=== PATIENT | male | born 1950 | race Caucasian/White ===

== ENCOUNTER 2016-04-19 20:50 | Inpatient (IN) | payer MEDICAID ==
[~2016-04-19] VITALS: Ht 182.9 cm; Wt 79.5 kg
[2016-04-19 21:18] LABS: Basophils # (auto) 0.1 uL; Basophils % (auto) 0.5 % (0.0-2.0); Eosinophils # (auto) 0.1 uL; Eosinophils % (auto) 0.5 % (0.0-7.0); Hematocrit 39.1 % (41.0-53.0); Hemoglobin 12.9 g/dL (13.5-17.5); Lymphocytes # (auto) 0.9 uL; Lymphocytes % (auto) 7.9 % (10.0-50.0); Mean Corpuscular Hemoglobin 27.8 pg (28.0-32.0); Mean Corpuscular Hgb Conc. 33.1 g/dL (32.0-36.0); Mean Platelet Volume 6.1 fL (7.4-10.4); Neutrophils # (auto) 9.9 uL; Neutrophils % (auto) 83.1 % (37.0-80.0); Platelet Count (auto) 622 10^3/uL (140-450); Red Cell Distribution Width 14.1 % (11.6-16.0); White Blood Cell 11.9 10^3/uL (4.4-10.8)
[2016-04-19] MEDS ORDERED: ENOXAPARIN SOD 80 MG/0.8ML SYRINGE SC ONE (21:30)
[2016-04-19] MEDS ORDERED: ASPirin 81 mg TAB PO ONE (21:30)
[2016-04-19] MEDS ORDERED: MORPHINE SULFATE 4 MG/ML SYRG IV PRN (21:30)
[2016-04-19] MEDS ORDERED: ONDANSETRON HCL 4 MG/2 ML VIAL IV ONE (21:30)
[2016-04-19] MEDS ORDERED: NITROGLYCERIN 0.2MG/HR TOPICAL PATCH TD ONE (21:30)
[2016-04-19 21:33] LABS: Partial Thromboplastin Time 29.8 sec (22.64-33.71); Prothrombin Time 11.9 sec (9.37-12.3)
[2016-04-19 21:42] LABS: INR 1.16 (0.9-1.15)
[2016-04-19 21:45] LABS: B-Type Natriuretic Peptide 811.73 pg/mL (0-100); Temperature: 22.9 C (20.0-25.0)
[2016-04-19 21:53] LABS: Albumin 3.3 g/dL (3.4-5.0); BUN/Creatinine Ratio 19.6; Bilirubin, Total 0.5 mg/dL (0.2-1.0); Calcium 8.3 mg/dL (8.5-10.1); Potassium 3.6 mmol/L (3.5-5.1)
[2016-04-19] MEDS ORDERED: FUROSEMIDE 20 MG/2 ML VIAL ONE (22:35)
[2016-04-19] MEDS ORDERED: FUROSEMIDE 20 MG/2 ML VIAL IV ONE (23:00)
[2016-04-20] VITALS (20 sets, daily range): BP systolic 116–157; BP diastolic 72–99
[2016-04-20] MEDS ORDERED: AZITHROMYCIN 500MG/D5W 250ML 250 ML IV ONE (11:45)
[2016-04-20] MEDS ORDERED: ONDANSETRON HCL 4 MG/2 ML VIAL IV PRN (11:45)
[2016-04-20] MEDS ORDERED: cefTRIAXone 1GM/50ML D5W 50 ML IV ONE (11:45)
[2016-04-20] MEDS ORDERED: POTASSIUM CHL 10 Meq TABLET PO ONE (11:45)
[2016-04-20] MEDS ORDERED: LORazepam 0.5 MG TAB PO PRN (11:45)
[2016-04-20] MEDS ORDERED: ALUM & MAG HYDROX-SIMETH LIQ(MAALOX) 30 ML PO PRN (11:45)
[2016-04-20] MEDS ORDERED: NITROGLYCERIN 0.4 MG SL TAB SL PRN ×2 (11:45)
[2016-04-20] MEDS ORDERED: PANTOPRAZOLE 40 MG TAB PO ONE (11:45)
[2016-04-20] MEDS ORDERED: ZOLPIDEM TARTRATE 5 MG TAB PO PRN (11:45)
[2016-04-20] MEDS ORDERED: MORPHINE SULF INJ 2 MG/ML SYRINGE 1ML IV PRN ×2 (11:45)
[2016-04-20] MEDS ORDERED: DOCUSATE SOD 100 MG CAP PO ONE (12:00)
[2016-04-20] MEDS ORDERED: ASPirin 81 mg TAB PO ONE (12:00)
[2016-04-20] MEDS ORDERED: ENOXAPARIN SOD 80 MG/0.8ML SYRINGE SC ONE (12:00)
[2016-04-20] MEDS ORDERED: CLOPIDOGREL BISULFATE 75 MG TAB PO ONE (12:00)
[2016-04-20] MEDS: SODIUM CHLOR 0.9% PF (SALINE LOCK) 10ML VIAL IV SCH ×2 (12:05→22:26)
[2016-04-20] MEDS ORDERED: HEPARIN IN NS 1000U/500ML (2UNIT/ML) 500 ML BAG IV ONE (13:45)
[2016-04-20] MEDS ORDERED: HEPARIN 1,000 UNITS/ml 1ML VIAL IV ONE (14:00)
[2016-04-20] MEDS ORDERED: HEPARIN SODIUM (PORCINE) 5000 UNITS/ML 1ML VIAL IV ONE (14:01)
[2016-04-20] MEDS ORDERED: IOHEXOL 350 MG/ML 100ML IJ ONE ×2 (14:08→14:22)
[2016-04-20] MEDS ORDERED: LIDOCAINE 2%HCL (LOCAL ANESTH.) INJ 20ML MDV ONE ×2 (14:08→14:20)
[2016-04-20] MEDS ORDERED: fentaNYL CITRATE 100 MCG/2 ML VL ONE (14:19)
[2016-04-20] MEDS ORDERED: MIDAZOLAM HCL 1MG/1ML-2 ML VIAL ONE (14:20)
[2016-04-20] MEDS ORDERED: SODIUM CHL 0.9% 50 ML ONE (14:20)
[2016-04-20] MEDS ORDERED: EPTIFIBATIDE INJ (2MG/ML) 10ML VIAL IV ONE (14:20)
[2016-04-20] MEDS ORDERED: ANGIOMAX 250 MG VIAL IV ONE (14:20)
[2016-04-20] MEDS ORDERED: HEPARIN DRIP/D5W 100UNITS/ML 250 ML IV SCH ×2 (14:44→16:54)
[2016-04-20 15:02] LABS: Basophils # (auto) 0.1 uL; Basophils % (auto) 0.8 % (0.0-2.0); Eosinophils # (auto) 0.1 uL; Hematocrit 37.7 % (41.0-53.0); Hemoglobin 12.4 g/dL (13.5-17.5); Lymphocytes # (auto) 1.6 uL; Lymphocytes % (auto) 15.6 % (10.0-50.0); Mean Corpuscular Volume 84.9 fL (80.0-100.0); Monocytes # (auto) 0.9 uL; Monocytes % (auto) 9.2 % (0.0-12.0); Neutrophils # (auto) 7.3 uL; Neutrophils % (auto) 73.4 % (37.0-80.0); Platelet Count (auto) 501 10^3/uL (140-450); Red Cell Distribution Width 14.7 % (11.6-16.0); White Blood Cell 9.9 10^3/uL (4.4-10.8)
[2016-04-20 15:10] LABS: Partial Thromboplastin Time 35.6 sec (22.64-33.71); Prothrombin Time 12.1 sec (9.37-12.3)
[2016-04-20 15:21] LABS: INR 1.17 (0.9-1.15)
[2016-04-20] MEDS: FUROSEMIDE 20 MG/2 ML VIAL IV SCH (17:26)
[2016-04-20] MEDS: BOOST PLUS 8 ounce PO SCH (18:00)
[2016-04-20] MEDS: HEPARIN DRIP/D5W 100UNITS/ML 250 ML IV SCH (18:19)
[2016-04-20] MEDS: ALBUTEROL SULF 2.5 MG/0.5ML(0.5%) NEB SOLN NEB SCH (18:35)
[2016-04-20] MEDS: IPRATROPIUM BROM 0.5 MG/2.5ML INH SOL NEB SCH (18:35)
[2016-04-20] MEDS ORDERED: ENOXAPARIN SOD 80 MG/0.8ML SYRINGE SC SCH (22:00)
[2016-04-20] MEDS: FLUTICASONE PROP NASAL SPR 0.05 % (50MCG) 16GM EACHNOSTRI SCH (22:25)
[2016-04-20] MEDS: CARVEDILOL 3.125 MG TAB PO SCH (22:29)
[2016-04-20] MEDS: POTASSIUM CHL 10 Meq TABLET PO SCH (22:30)
[2016-04-20] MEDS: ATORVASTATIN 20 MG TAB PO SCH (22:30)
[2016-04-20] MEDS: PANTOPRAZOLE 40 MG TAB PO SCH (22:31)
[2016-04-20] MEDS: ACETAMINOPHEN 325 MG TAB PO PRN (23:29)
[2016-04-21] VITALS (70 sets, daily range): BP systolic 98–150; BP diastolic 56–91
[2016-04-21] MEDS: IPRATROPIUM BROM 0.5 MG/2.5ML INH SOL NEB SCH ×4 (00:04→18:30)
[2016-04-21] MEDS: ALBUTEROL SULF 2.5 MG/0.5ML(0.5%) NEB SOLN NEB SCH ×4 (00:04→18:31)
[2016-04-21] MEDS: ENALAPRIL MALEATE 2.5 MG TAB PO SCH ×4 (00:18→22:00)
[2016-04-21 04:34] LABS: Basophils # (auto) 0.1 uL; Basophils % (auto) 1.2 % (0.0-2.0); Eosinophils # (auto) 0 uL; Eosinophils % (auto) 0.3 % (0.0-7.0); Hematocrit 33.6 % (41.0-53.0); Hemoglobin 11.3 g/dL (13.5-17.5); Lymphocytes # (auto) 0.9 uL; Lymphocytes % (auto) 8.5 % (10.0-50.0); Mean Corpuscular Hemoglobin 28.3 pg (28.0-32.0); Mean Corpuscular Hgb Conc. 33.5 g/dL (32.0-36.0); Mean Corpuscular Volume 84.7 fL (80.0-100.0); Mean Platelet Volume 6.5 fL (7.4-10.4); Monocytes # (auto) 1.1 uL; Monocytes % (auto) 9.8 % (0.0-12.0); Neutrophils # (auto) 8.9 uL; Neutrophils % (auto) 80.2 % (37.0-80.0); Platelet Count (auto) 556 10^3/uL (140-450); Red Cell Distribution Width 14.5 % (11.6-16.0); White Blood Cell 11.1 10^3/uL (4.4-10.8)
[2016-04-21 04:39] LABS: Prothrombin Time 12.3 sec (9.37-12.3)
[2016-04-21 04:49] LABS: Albumin 2.6 g/dL (3.4-5.0); Bilirubin, Total 0.9 mg/dL (0.2-1.0); Calcium 8.2 mg/dL (8.5-10.1); Potassium 3.8 mmol/L (3.5-5.1); Total Protein 6.1 g/dL (6.4-8.2)
[2016-04-21 05:27] LABS: INR 1.19 (0.9-1.15)
[2016-04-21] MEDS: FUROSEMIDE 20 MG/2 ML VIAL IV SCH ×2 (06:22→19:25)
[2016-04-21] MEDS: SODIUM CHLOR 0.9% PF (SALINE LOCK) 10ML VIAL IV SCH ×3 (06:29→22:00)
[2016-04-21] MEDS: ACETAMINOPHEN 325 MG TAB PO PRN ×2 (06:58→23:59)
[2016-04-21] MEDS: BOOST PLUS 8 ounce PO SCH ×3 (08:00→18:00)
[2016-04-21] MEDS ORDERED: CLOPIDOGREL BISULFATE 75 MG TAB PO SCH (10:00)
[2016-04-21] MEDS: CARVEDILOL 3.125 MG TAB PO SCH ×2 (10:00→22:00)
[2016-04-21] MEDS: cefTRIAXone 1GM/50ML D5W 50 ML IV SCH (10:11)
[2016-04-21] MEDS: FLUTICASONE PROP NASAL SPR 0.05 % (50MCG) 16GM EACHNOSTRI SCH ×2 (10:12→22:00)
[2016-04-21] MEDS: ASPirin 81 mg TAB PO SCH (10:12)
[2016-04-21] MEDS: PANTOPRAZOLE 40 MG TAB PO SCH ×2 (10:12→22:00)
[2016-04-21] MEDS: POTASSIUM CHL 10 Meq TABLET PO SCH ×2 (10:13→22:00)
[2016-04-21] MEDS: DOCUSATE SOD 100 MG CAP PO SCH (10:13)
[2016-04-21] MEDS: AZITHROMYCIN 500MG/D5W 250ML 250 ML IV SCH (11:03)
[2016-04-21] MEDS ORDERED: HYDROcodone-ACET 5/325MG TAB ONE (14:16)
[2016-04-21] MEDS: HEPARIN DRIP/D5W 100UNITS/ML 250 ML IV SCH (19:27)
[2016-04-21] MEDS: ATORVASTATIN 20 MG TAB PO SCH (22:00)
[2016-04-22] VITALS (48 sets, daily range): BP systolic 97–132; BP diastolic 50–91
[2016-04-22] MEDS: IPRATROPIUM BROM 0.5 MG/2.5ML INH SOL NEB SCH ×4 (00:08→19:38)
[2016-04-22] MEDS: ALBUTEROL SULF 2.5 MG/0.5ML(0.5%) NEB SOLN NEB SCH ×4 (00:08→19:38)
[2016-04-22 04:06] LABS: Basophils # (auto) 0.1 uL; Basophils % (auto) 0.5 % (0.0-2.0); Eosinophils # (auto) 0 uL; Eosinophils % (auto) 0.2 % (0.0-7.0); Hematocrit 37.4 % (41.0-53.0); Hemoglobin 12.4 g/dL (13.5-17.5); Lymphocytes # (auto) 0.9 uL; Lymphocytes % (auto) 7.2 % (10.0-50.0); Mean Corpuscular Hemoglobin 28.1 pg (28.0-32.0); Mean Corpuscular Hgb Conc. 33.2 g/dL (32.0-36.0); Mean Corpuscular Volume 84.7 fL (80.0-100.0); Mean Platelet Volume 7.2 fL (7.4-10.4); Monocytes # (auto) 1.1 uL; Monocytes % (auto) 9.2 % (0.0-12.0); Neutrophils # (auto) 10.1 uL; Neutrophils % (auto) 82.9 % (37.0-80.0); Platelet Count (auto) 491 10^3/uL (140-450); White Blood Cell 12.2 10^3/uL (4.4-10.8)
[2016-04-22 04:39] LABS: Partial Thromboplastin Time 31.6 sec (22.64-33.71); Prothrombin Time 12.3 sec (9.37-12.3)
[2016-04-22 04:49] LABS: INR 1.19 (0.9-1.15)
[2016-04-22] MEDS: SODIUM CHLOR 0.9% PF (SALINE LOCK) 10ML VIAL IV SCH ×3 (06:08→22:40)
[2016-04-22] MEDS: FUROSEMIDE 20 MG/2 ML VIAL IV SCH ×2 (06:52→17:22)
[2016-04-22] MEDS: BOOST PLUS 8 ounce PO SCH ×3 (08:00→18:00)
[2016-04-22 09:01] LABS: BUN/Creatinine Ratio 15.5; Calcium 8.7 mg/dL (8.5-10.1); Magnesium 2.4 mg/dL (1.6-2.6); Potassium 3.7 mmol/L (3.5-5.1)
[2016-04-22] MEDS: HYDROcodone-ACET 5/325MG TAB PO PRN ×2 (09:02→23:51)
[2016-04-22] MEDS: cefTRIAXone 1GM/50ML D5W 50 ML IV SCH (09:18)
[2016-04-22] MEDS: FLUTICASONE PROP NASAL SPR 0.05 % (50MCG) 16GM EACHNOSTRI SCH ×2 (10:00→22:40)
[2016-04-22] MEDS: ENALAPRIL MALEATE 2.5 MG TAB PO SCH ×2 (10:00→21:59)
[2016-04-22] MEDS: PANTOPRAZOLE 40 MG TAB PO SCH (10:30)
[2016-04-22] MEDS: AZITHROMYCIN 500MG/D5W 250ML 250 ML IV SCH (10:30)
[2016-04-22] MEDS: ASPirin 81 mg TAB PO SCH (10:30)
[2016-04-22] MEDS: DOCUSATE SOD 100 MG CAP PO SCH (10:30)
[2016-04-22] MEDS: POTASSIUM CHL 10 Meq TABLET PO SCH ×2 (10:30→21:56)
[2016-04-22] MEDS ORDERED: CARVEDILOL 3.125 MG TAB PO ONE (12:30)
[2016-04-22] MEDS ORDERED: ENOXAPARIN SOD 100 MG/1 ML SYRINGE SC ONE (12:30)
[2016-04-22] MEDS: DOXYCYCLINE 100 MG TAB/CAP PO SCH ×2 (17:22→21:58)
[2016-04-22] MEDS: ENOXAPARIN SOD 80 MG/0.8ML SYRINGE SC SCH (21:56)
[2016-04-22] MEDS: CARVEDILOL 3.125 MG TAB PO SCH (21:57)
[2016-04-22] MEDS: ATORVASTATIN 20 MG TAB PO SCH (21:58)
[2016-04-23] MEDS: ALBUTEROL SULF 2.5 MG/0.5ML(0.5%) NEB SOLN NEB SCH ×4 (00:50→19:12)
[2016-04-23] MEDS: IPRATROPIUM BROM 0.5 MG/2.5ML INH SOL NEB SCH ×4 (00:50→19:12)
[2016-04-23 05:30] VITALS: BP 93/68
[2016-04-23] MEDS: FUROSEMIDE 20 MG/2 ML VIAL IV SCH ×2 (05:53→18:27)
[2016-04-23] MEDS: SODIUM CHLOR 0.9% PF (SALINE LOCK) 10ML VIAL IV SCH ×3 (05:57→21:52)
[2016-04-23 06:37] LABS: Basophils # (auto) 0.1 uL; Basophils % (auto) 0.6 % (0.0-2.0); Eosinophils # (auto) 0.2 uL; Eosinophils % (auto) 2.5 % (0.0-7.0); Hematocrit 35.3 % (41.0-53.0); Hemoglobin 11.8 g/dL (13.5-17.5); Lymphocytes # (auto) 1.3 uL; Lymphocytes % (auto) 13.5 % (10.0-50.0); Mean Corpuscular Hemoglobin 27.5 pg (28.0-32.0); Mean Corpuscular Hgb Conc. 33.4 g/dL (32.0-36.0); Mean Corpuscular Volume 82.4 fL (80.0-100.0); Mean Platelet Volume 6.8 fL (7.4-10.4); Monocytes # (auto) 1.2 uL; Neutrophils % (auto) 71.4 % (37.0-80.0); Platelet Count (auto) 483 10^3/uL (140-450); Red Cell Distribution Width 14.2 % (11.6-16.0); White Blood Cell 9.9 10^3/uL (4.4-10.8)
[2016-04-23 06:46] LABS: INR 1.15 (0.9-1.15); Partial Thromboplastin Time 34.9 sec (22.64-33.71); Prothrombin Time 11.8 sec (9.37-12.3)
[2016-04-23 07:24] LABS: BUN/Creatinine Ratio 15.9; Calcium 8.2 mg/dL (8.5-10.1); Potassium 3.7 mmol/L (3.5-5.1)
[2016-04-23 09:00] VITALS: BP 104/68
[2016-04-23] MEDS: ENOXAPARIN SOD 80 MG/0.8ML SYRINGE SC SCH ×2 (10:00→21:48)
[2016-04-23] MEDS: ENALAPRIL MALEATE 2.5 MG TAB PO SCH ×2 (10:00→21:48)
[2016-04-23] MEDS: DOXYCYCLINE 100 MG TAB/CAP PO SCH ×2 (11:21→21:48)
[2016-04-23] MEDS: CARVEDILOL 3.125 MG TAB PO SCH ×2 (11:22→21:48)
[2016-04-23] MEDS: DOCUSATE SOD 100 MG CAP PO SCH (11:23)
[2016-04-23] MEDS: ASPirin 81 mg TAB PO SCH (11:23)
[2016-04-23] MEDS: PANTOPRAZOLE 40 MG TAB PO SCH (11:23)
[2016-04-23] MEDS: POTASSIUM CHL 10 Meq TABLET PO SCH ×2 (11:23→21:46)
[2016-04-23] MEDS: BOOST PLUS 8 ounce PO SCH ×3 (12:13→18:00)
[2016-04-23] MEDS: FLUTICASONE PROP NASAL SPR 0.05 % (50MCG) 16GM EACHNOSTRI SCH ×2 (12:14→21:52)
[2016-04-23 13:00] VITALS: BP 103/70
[2016-04-23] MEDS: HYDROcodone-ACET 5/325MG TAB PO PRN ×2 (14:27→20:41)
[2016-04-23] MEDS: guaiFENesin-DEXTROMETHORPHAN 5ML SYR GT PRN ×2 (15:34→20:40)
[2016-04-23 17:00] VITALS: BP 100/62
[2016-04-23] MEDS: ATORVASTATIN 20 MG TAB PO SCH (21:48)
[2016-04-23 22:00] VITALS: BP 109/70
[2016-04-24] MEDS: IPRATROPIUM BROM 0.5 MG/2.5ML INH SOL NEB SCH ×5 (00:02→23:37)
[2016-04-24] MEDS: ALBUTEROL SULF 2.5 MG/0.5ML(0.5%) NEB SOLN NEB SCH ×5 (00:02→23:37)
[2016-04-24 05:30] VITALS: BP 107/70
[2016-04-24] MEDS: SODIUM CHLOR 0.9% PF (SALINE LOCK) 10ML VIAL IV SCH ×3 (05:53→22:12)
[2016-04-24] MEDS: FUROSEMIDE 20 MG/2 ML VIAL IV SCH ×2 (05:53→17:52)
[2016-04-24 06:04] LABS: Basophils # (auto) 0.1 uL; Basophils % (auto) 0.7 % (0.0-2.0); Eosinophils # (auto) 0.2 uL; Eosinophils % (auto) 1.8 % (0.0-7.0); Hemoglobin 11.6 g/dL (13.5-17.5); Lymphocytes # (auto) 1.2 uL; Lymphocytes % (auto) 13.7 % (10.0-50.0); Mean Corpuscular Hemoglobin 27.7 pg (28.0-32.0); Mean Corpuscular Volume 83.9 fL (80.0-100.0); Mean Platelet Volume 7.1 fL (7.4-10.4); Monocytes # (auto) 0.9 uL; Monocytes % (auto) 10.9 % (0.0-12.0); Neutrophils # (auto) 6.1 uL; Neutrophils % (auto) 72.9 % (37.0-80.0); Platelet Count (auto) 463 10^3/uL (140-450); Red Cell Distribution Width 14.5 % (11.6-16.0); White Blood Cell 8.4 10^3/uL (4.4-10.8)
[2016-04-24 06:12] LABS: BUN/Creatinine Ratio 19.4; Calcium 8.4 mg/dL (8.5-10.1); Potassium 3.8 mmol/L (3.5-5.1)
[2016-04-24 08:09] VITALS: BP 104/68
[2016-04-24] MEDS ORDERED: THROAT LOZENGES(CEPASTAT) MT ONE (09:15)
[2016-04-24 09:20] LABS: B-Type Natriuretic Peptide 671.98 pg/mL (0-100); Temperature: 22.9 C (20.0-25.0)
[2016-04-24] MEDS: PANTOPRAZOLE 40 MG TAB PO SCH (09:33)
[2016-04-24] MEDS: ENALAPRIL MALEATE 2.5 MG TAB PO SCH ×2 (09:33→22:14)
[2016-04-24] MEDS: ASPirin 81 mg TAB PO SCH (09:34)
[2016-04-24] MEDS: POTASSIUM CHL 10 Meq TABLET PO SCH ×2 (09:34→22:13)
[2016-04-24] MEDS: CARVEDILOL 3.125 MG TAB PO SCH ×2 (09:34→22:13)
[2016-04-24] MEDS: DOCUSATE SOD 100 MG CAP PO SCH (09:34)
[2016-04-24] MEDS: DOXYCYCLINE 100 MG TAB/CAP PO SCH ×2 (09:34→22:14)
[2016-04-24] MEDS: ENOXAPARIN SOD 80 MG/0.8ML SYRINGE SC SCH (09:35)
[2016-04-24] MEDS: BOOST PLUS 8 ounce PO SCH ×3 (09:35→19:16)
[2016-04-24] MEDS: LEVOFLOXACIN 750MG 150 ML IV SCH (09:44)
[2016-04-24 12:40] VITALS: BP 106/71
[2016-04-24] MEDS: FLUTICASONE PROP NASAL SPR 0.05 % (50MCG) 16GM EACHNOSTRI SCH ×2 (12:42→22:12)
[2016-04-24 17:02] VITALS: BP 93/63
[2016-04-24] MEDS: HYDROcodone-ACET 5/325MG TAB PO PRN (20:20)
[2016-04-24] MEDS: guaiFENesin-DEXTROMETHORPHAN 5ML SYR GT PRN (20:20)
[2016-04-24] MEDS: ATORVASTATIN 20 MG TAB PO SCH (22:13)
[2016-04-24] MEDS: THROAT LOZENGES(CEPASTAT) MT PRN (22:19)
[2016-04-25] MEDS: HYDROcodone-ACET 5/325MG TAB PO PRN ×3 (03:13→21:52)
[2016-04-25] MEDS: guaiFENesin-DEXTROMETHORPHAN 5ML SYR GT PRN ×2 (03:13→14:58)
[2016-04-25 05:41] VITALS: BP 101/69
[2016-04-25] MEDS: SODIUM CHLOR 0.9% PF (SALINE LOCK) 10ML VIAL IV SCH ×3 (06:30→21:49)
[2016-04-25] MEDS: FUROSEMIDE 20 MG/2 ML VIAL IV SCH ×2 (06:30→19:09)
[2016-04-25 08:00] VITALS: BP 111/74
[2016-04-25] MEDS: BOOST PLUS 8 ounce PO SCH ×3 (08:00→18:00)
[2016-04-25] MEDS: IPRATROPIUM BROM 0.5 MG/2.5ML INH SOL NEB SCH ×3 (08:06→18:54)
[2016-04-25] MEDS: ALBUTEROL SULF 2.5 MG/0.5ML(0.5%) NEB SOLN NEB SCH ×3 (08:06→18:54)
[2016-04-25 09:00] VITALS: BP 111/74
[2016-04-25] MEDS: FLUTICASONE PROP NASAL SPR 0.05 % (50MCG) 16GM EACHNOSTRI SCH ×2 (11:37→21:49)
[2016-04-25] MEDS: DOCUSATE SOD 100 MG CAP PO SCH (11:37)
[2016-04-25] MEDS: ASPirin 81 mg TAB PO SCH (11:37)
[2016-04-25] MEDS: DOXYCYCLINE 100 MG TAB/CAP PO SCH ×2 (11:37→21:51)
[2016-04-25] MEDS: CARVEDILOL 3.125 MG TAB PO SCH ×2 (11:39→21:50)
[2016-04-25] MEDS: PANTOPRAZOLE 40 MG TAB PO SCH (11:39)
[2016-04-25] MEDS: ENALAPRIL MALEATE 2.5 MG TAB PO SCH ×2 (11:40→21:51)
[2016-04-25] MEDS: POTASSIUM CHL 10 Meq TABLET PO SCH ×2 (12:25→21:50)
[2016-04-25] MEDS: ENOXAPARIN SOD 80 MG/0.8ML SYRINGE SC SCH (12:26)
[2016-04-25] MEDS: LEVOFLOXACIN 750MG 150 ML IV SCH (12:27)
[2016-04-25 13:00] VITALS: BP 94/64
[2016-04-25 17:00] VITALS: BP 108/65
[2016-04-25 21:30] VITALS: BP 113/66
[2016-04-25] MEDS: ATORVASTATIN 20 MG TAB PO SCH (21:50)
[2016-04-25] MEDS: THROAT LOZENGES(CEPASTAT) MT PRN (21:51)
[2016-04-26] MEDS: IPRATROPIUM BROM 0.5 MG/2.5ML INH SOL NEB SCH ×4 (00:20→18:25)
[2016-04-26] MEDS: ALBUTEROL SULF 2.5 MG/0.5ML(0.5%) NEB SOLN NEB SCH ×4 (00:20→18:25)
[2016-04-26 05:00] VITALS: BP 94/60
[2016-04-26 05:59] VITALS: BP 104/66
[2016-04-26] MEDS: SODIUM CHLOR 0.9% PF (SALINE LOCK) 10ML VIAL IV SCH (06:00)
[2016-04-26] MEDS: FUROSEMIDE 20 MG/2 ML VIAL IV SCH (06:00)
[2016-04-26 06:31] LABS: Basophils # (auto) 0 uL; Basophils % (auto) 0.4 % (0.0-2.0); Eosinophils # (auto) 0.1 uL; Eosinophils % (auto) 1.2 % (0.0-7.0); Hematocrit 36.7 % (41.0-53.0); Hemoglobin 12.1 g/dL (13.5-17.5); Lymphocytes # (auto) 1.1 uL; Lymphocytes % (auto) 10.7 % (10.0-50.0); Mean Corpuscular Hemoglobin 27.5 pg (28.0-32.0); Mean Corpuscular Hgb Conc. 33.1 g/dL (32.0-36.0); Mean Corpuscular Volume 83.1 fL (80.0-100.0); Mean Platelet Volume 7.4 fL (7.4-10.4); Monocytes # (auto) 1.1 uL; Monocytes % (auto) 10.4 % (0.0-12.0); Neutrophils % (auto) 77.3 % (37.0-80.0); Platelet Count (auto) 449 10^3/uL (140-450); Red Cell Distribution Width 14.2 % (11.6-16.0); White Blood Cell 10.4 10^3/uL (4.4-10.8)
[2016-04-26 06:42] LABS: INR 1.24 (0.9-1.15); Prothrombin Time 12.8 sec (9.37-12.3)
[2016-04-26] MEDS: ACETAMINOPHEN 325 MG TAB PO PRN (06:53)
[2016-04-26 06:54] LABS: BUN/Creatinine Ratio 18.8; Magnesium 2.3 mg/dL (1.6-2.6); Potassium 4.3 mmol/L (3.5-5.1)
[2016-04-26] MEDS: BOOST PLUS 8 ounce PO SCH ×2 (08:00→12:00)
[2016-04-26 09:18] VITALS: BP 100/66
[2016-04-26] MEDS: DOCUSATE SOD 100 MG CAP PO SCH (09:39)
[2016-04-26] MEDS: FLUTICASONE PROP NASAL SPR 0.05 % (50MCG) 16GM EACHNOSTRI SCH (09:39)
[2016-04-26] MEDS: ASPirin 81 mg TAB PO SCH (09:40)
[2016-04-26] MEDS: PANTOPRAZOLE 40 MG TAB PO SCH (09:40)
[2016-04-26] MEDS: POTASSIUM CHL 10 Meq TABLET PO SCH (09:40)
[2016-04-26] MEDS: DOXYCYCLINE 100 MG TAB/CAP PO SCH (09:41)
[2016-04-26] MEDS: HYDROcodone-ACET 5/325MG TAB PO PRN ×2 (09:56→15:48)
[2016-04-26] MEDS: guaiFENesin-DEXTROMETHORPHAN 5ML SYR GT PRN ×2 (09:56→15:48)
[2016-04-26] MEDS: ENALAPRIL MALEATE 2.5 MG TAB PO SCH (10:00)
[2016-04-26] MEDS: ENOXAPARIN SOD 80 MG/0.8ML SYRINGE SC SCH (10:00)
[2016-04-26] MEDS: CARVEDILOL 3.125 MG TAB PO SCH (10:00)
[2016-04-26] MEDS: LEVOFLOXACIN 750MG 150 ML IV SCH (10:10)
[2016-04-26 12:55] VITALS: BP_SYST 101; BP_DIAS 109; BP_DIAS 68
[2016-04-26 16:22] VITALS: BP 108/72
== END 2016-04-26 18:33 | disposition short-term general hospital (02) | DRG 191 ==
LOC: EDSEX 20:52 → ER 20:52 → TELE 20:53 → ICU WEST 04-20 14:56 → TELE-WESTW 04-22 18:53
PROVIDERS: ADMIT Internal Medicine; ATTEND Internal Medicine
PROC: 4A023N7 Measurement of Cardiac Sampling and Pressure, Left Heart, Percutaneous Approach (ICD-10-PCS; principal; 2016-04-20)
PROC: B2111ZZ Fluoroscopy of Multiple Coronary Arteries using Low Osmolar Contrast (ICD-10-PCS; 2016-04-20)
PROC: B2151ZZ Fluoroscopy of Left Heart using Low Osmolar Contrast (ICD-10-PCS; 2016-04-20)
PROC: B41J1ZZ Fluoroscopy of Other Lower Arteries using Low Osmolar Contrast (ICD-10-PCS; 2016-04-20)
DX: I50.41 Acute combined systolic (congestive) and diastolic (congestive) heart failure (principal); I21.09 ST elevation (STEMI) myocardial infarction involving other coronary artery of anterior wall; J18.9 Pneumonia, unspecified organism; D68.9 Coagulation defect, unspecified; E44.0 Moderate protein-calorie malnutrition; I25.82 Chronic total occlusion of coronary artery; J45.901 Unspecified asthma with (acute) exacerbation; D63.8 Anemia in other chronic diseases classified elsewhere; N18.2 Chronic kidney disease, stage 2 (mild); J20.9 Acute bronchitis, unspecified; I25.10 Atherosclerotic heart disease of native coronary artery without angina pectoris; I25.5 Ischemic cardiomyopathy; Z90.49 Acquired absence of other specified parts of digestive tract; I25.2 Old myocardial infarction; Z82.49 Family history of ischemic heart disease and other diseases of the circulatory system; Z79.899 Other long term (current) drug therapy; Z68.23 Body mass index [BMI] 23.0-23.9, adult
CPT/HCPCS: 36415; 71010; 80048; 80053; 80061; 83605; 83735; 83880; 84132; 84484; 85025; 85610; 85730; 87040; 87081; 93005; 93306; 94640; 96365; 96368; 96372; 96375; 96376; 99152; J0696; J1956; J2250; J2405

== ENCOUNTER 2016-05-27 14:58 | Observation (INO) | payer MEDICAID ==
[~2016-05-27] VITALS: Ht 172.7 cm; Wt 68.0 kg
[2016-05-27] MEDS ORDERED: SODIUM CHLORIDE 0.9% 1,000 ML IV ONE (16:17)
[2016-05-27 16:19] LABS: Basophils # (auto) 0 uL; Basophils % (auto) 0.3 % (0.0-2.0); DEFINITIVE VIEW TRANSMISSION; Eosinophils # (auto) 0 uL; Eosinophils % (auto) 0.4 % (0.0-7.0); Hematocrit 36.5 % (41.0-53.0); Hemoglobin 11.8 g/dL (13.5-17.5); Lymphocytes # (auto) 1.1 uL; Lymphocytes % (auto) 10.7 % (10.0-50.0); Mean Corpuscular Hemoglobin 26.2 pg (28.0-32.0); Mean Corpuscular Hgb Conc. 32.2 g/dL (32.0-36.0); Mean Corpuscular Volume 81.2 fL (80.0-100.0); Mean Platelet Volume 6.7 fL (7.4-10.4); Monocytes # (auto) 0.4 uL; Monocytes % (auto) 3.6 % (0.0-12.0); Neutrophils # (auto) 8.4 uL; Platelet Count (auto) 522 10^3/uL (140-450); Red Cell Distribution Width 17.4 % (11.6-16.0); White Blood Cell 9.9 10^3/uL (4.4-10.8)
[2016-05-27 16:24] LABS: Albumin 3.1 g/dL (3.4-5.0); BUN/Creatinine Ratio 18.5; Calcium 8.3 mg/dL (8.5-10.1); Potassium 4.1 mmol/L (3.5-5.1)
[2016-05-27 16:29] LABS: Bilirubin, Total 0.5 mg/dL (0.2-1.0); Total Protein 6.8 g/dL (6.4-8.2)
[2016-05-27] MEDS ORDERED: ONDANSETRON HCL 4 MG/2 ML VIAL IV ONE (16:30)
[2016-05-27] MEDS ORDERED: MORPHINE SULF INJ 2 MG/ML SYRINGE 1ML IV ONE (16:30)
[2016-05-27] MEDS ORDERED: ASPirin 81 mg TAB PO ONE (16:30)
[2016-05-27] MEDS ORDERED: diphenhdrAMINE HCL 50 MG/1 ML VL IV ONE (17:15)
[2016-05-27 17:42] LABS: B-Type Natriuretic Peptide 293.41 pg/mL (0-100); Temperature: 24.1 C (20.0-25.0)
[2016-05-27 18:23] VITALS: BP 112/72
== END 2016-05-27 20:19 | disposition home or self-care (01) | DRG 385 ==
LOC: EDBD 14:58 → ER 15:07 → OVERFLOW 16:21 → ER 20:19
PROVIDERS: ADMIT Family Medicine; ATTEND Family Medicine
DX: L29.9 Pruritus, unspecified (principal); J90 Pleural effusion, not elsewhere classified; I42.9 Cardiomyopathy, unspecified; I50.9 Heart failure, unspecified; I25.10 Atherosclerotic heart disease of native coronary artery without angina pectoris; I25.2 Old myocardial infarction; I70.0 Atherosclerosis of aorta; J98.11 Atelectasis; R79.89 Other specified abnormal findings of blood chemistry; R55 Syncope and collapse
CPT/HCPCS: 36415; 71010; 80053; 83735; 83880; 84443; 84484; 85025; 96361; 96374; 99285; G0378; J1200; J7030